=== PATIENT | male | born 1970 | race Caucasian/White ===

== ENCOUNTER 2022-02-25 18:05 | Emergency (ER) | payer SELFPAY ==
[~2022-02-25] VITALS: Ht 167.6 cm; Wt 84.5 kg
[2022-02-25 18:06] VITALS: BP 187/78
--- NOTE | 2022-02-25 18:11 | NUR ---
Ely al in [facility] - 02/25/22 at 1813 by [email or web address] PT AMB TO BED 9.
--- NOTE | 2022-02-25 18:13 | NUR ---
PT AMB TO BED 10
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
[2022-02-25] MEDS ORDERED: MORPHINE SULFATE 4 MG/ML SYR IM ONE (19:50)
--- NOTE | 2022-02-25 20:26 | NUR ---
PT TAKEN TO RADIOLOGY
--- NOTE | 2022-02-25 20:56 | NUR ---
PT RETURNED FROM RADIOLOGY
[2022-02-25 22:09] VITALS: BP 168/101
--- NOTE | 2022-02-25 22:10 | NUR ---
Patient discharged with v/s stable. Written and verbal after care instructions given and explained. Patient verbalized understanding. Ambulatory with steady gait. All questions addressed prior to discharge. Advised to follow up with PMD. A/OX4, UNLABORED BREATHING, AMBULATORY, AND CALM DEMEANOR.
== END 2022-02-25 22:10 | disposition home or self-care (01) ==
LOC: MED 18:05
DX: S14.109A Unspecified injury at unspecified level of cervical spinal cord, initial encounter (principal); S40.012A Contusion of left shoulder, initial encounter; S40.011A Contusion of right shoulder, initial encounter; S24.109A Unspecified injury at unspecified level of thoracic spinal cord, initial encounter; V43.92XA Unspecified car occupant injured in collision with other type car in traffic accident, initial encounter; Y93.89 Activity, other specified; Y92.89 Other specified places as the place of occurrence of the external cause; Y99.8 Other external cause status
CPT/HCPCS: 71046; 72040; 73030; 96372; 99284; J2270

== ENCOUNTER 2022-08-08 15:24 | Emergency (ER) | payer SELFPAY ==
[~2022-08-08] VITALS: Ht 195.6 cm; Wt 86.2 kg
[2022-08-08 15:57] VITALS: BP 180/132
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
[2022-08-08] MEDS ORDERED: NAPR-1704 PO (17:05)
--- NOTE | 2022-08-08 17:09 | NUR ---
Patient discharged with v/s stable. Written and verbal after care instructions given and explained. Patient verbalized understanding. Ambulatory with steady gait. All questions addressed prior to discharge. Advised to follow up with PMD.
--- NOTE | 2022-08-08 17:15 | NUR ---
SPOKE WITH PHYSICS TECHNICAL OFFICER 37 OF [facility] WITH REGARDS TO PATIENT REQUESTING TO FILE A POLICE REPORT. WAS INFORMED THAT [facility] DOES NOT SENT STAFF OUTSIDE OF [place] AND TO INSTRUCT PATIENT TO COME TO [place] POLICE DEPARTMENT TO FILE THEIR POLICE REPORT. PATIENT VERBALIZED UNDERSTANDING AND STATED HE WILL GO TO [place] POLICE STATION AND FILE HIS POLICE REPORT
== END 2022-08-08 17:09 | disposition home or self-care (01) ==
LOC: MED 15:24
DX: M25.562 Pain in left knee (principal); R03.0 Elevated blood-pressure reading, without diagnosis of hypertension
CPT/HCPCS: 73562; 99283